=== PATIENT | female | born 1985 | race Caucasian/White ===

== ENCOUNTER 2023-05-05 07:33 | Emergency (ER) | payer BC, SELFPAY ==
[2023-05-05 07:57] VITALS: BP 133/82
[2023-05-05 08:22] LABS: COVID-19 Antigen Negative (Negative)
--- NOTE | 2023-05-05 09:20 | ED.GENMED ---
History of Present Illness
General
Chief Complaint: Cold/Flu/URI Symptoms
Source: patient
Exam Limitations: none
Time Seen by Provider: 05/05/23 09:03
Nursing documentation reviewed up to this point in time: agreed with
Travel History
Have you had any contact with someone who has COVID-19?: No
Do you have any symptoms of coronavirus? Fever > 100 degrees, chills, cough, shortness of breath, sore throat, loss of taste or smell, muscle aches, or headache?: No
History of Present Illness
History of Present Illness:
Patient is a 38-year-old female who presents to the emergency department complaining of shortness of breath, cough with dilated veins in her lower legs. Patient is approximately 24 weeks and is due 09/12/2023. Patient is 2 para 1 �
0 � 0 � 1. Patient is noted that her vessels in her calves seem to be more dilated than normal. She also has a vessel in her medial left thigh that she says is more dilated. Patient denies fever or chills. Patient denies nasal congestion or sore
throat. Patient denies chest pain. Patient denies any abdominal pain. Patient denies any GI or symptoms.
Past History
Past History
ED Past Medical History: Hypothyroidism
ED Past Surgical History:
PSI?: No
Social History
Tobacco: Non-smoker
Personal:
Living: with family
Review of Systems
Review of Systems
All Other Systems: ROS reviewed and negative except as documented in HPI and ROS
Constitutional: Reports no symptoms
EENT: Reports no symptoms
Respiratory: Reports cough and trouble breathing
Cardiac: Reports no symptoms
ABD/GI: Reports no symptoms
: Reports no symptoms
Musculoskeletal: Reports other (Enlarged varicosities); Denies edema
Skin: Reports no symptoms
Neurological: Reports no symptoms
Hematologic/Lymphatic: Reports no symptoms
Phy Exam
Physical Exam
Physical Exam:
Physical Exam
General: No apparent distress, alert and appropriate, well nourished, well hydrated
HENT: Normocephalic, supple with no lymphadenopathy, no thyromegaly
Eyes: Clear sclera, conjuctiva without injection
Heart: Regular rhythm and rate. No S3, S4. No murmur.
Lungs: No respiratory distress, no stridor, lung sounds with end expiratory wheeze but otherwise clear and equal bilaterally
Abdomen: Soft, nontender, fundus appropriate for dates, no CVA tenderness, BS good
Neuro: Alert and oriented x 3, CN II - XII intact, no motor focality, no cerebellar dysfunction
Skin: no rash
Psychiatric: well kept. interactive and cooperative
Extremities: No edema, cyanosis, tenderness, Good and equal peripheral pulses. Superficial varicosities in the left calf but a deeper 1 medially in the left thigh inferiorly
Course
Orders/Labs/Results
Orders:
Orders
05/05/23 07:59
ECG [Electrocardiogram (*1)] Urgent
Reason for Study: Chest Pain
EKG- Treatment ONCE
05/05/23 08:01
COVID-19 Antigen Urgent
Source: Nasal Swab
Influenza A+B Rapid Molecular Urgent
TRACEE Source: Nasal Swab
Specimen Description:
05/05/23 09:17
Albuterol Nebs [Ventolin Nebules] 2.5 mg INH R NOW STA
Prednisone [Deltasone] 50 mg PO NOW STA
US Periph Venous LOWER Ext Krishna Urgent
Comment:
Reason For Exam: dilated veins preg sob
Vital Signs
Initial and Last Documented VS:
Initial Vital Signs
Temp Pulse Resp BP Pulse Ox
98.2 F 92 18 133/82 97
05/05/23 07:57 05/05/23 07:57 05/05/23 07:57 05/05/23 07:57 05/05/23 07:57
Last Documented Vital Signs
Temp Pulse Resp BP Pulse Ox
98.2 F 92 18 133/82 97
05/05/23 07:57 05/05/23 07:57 05/05/23 07:57 05/05/23 07:57 05/05/23 07:57
*Radiology
Radiology exam reviewed: radiology read reviewed (neg dvt)
*Pulse Oximetry
Patient hypoxic: no
*EKG
Interpreted by ED Provider?: NA
*Leasing Agent Interpretation
Rate: Leasing Agent- N/A
*Critical Care Note
Total Time (30-74mins, 75-104mins- exclusive of procedures): Not Applicable
Update Note
Update Note:
COVID and influenza are negative. Anticipate discharging patient on steroids and albuterol inhaler for acute bronchitis. I do not believe the patient needs antibiotics. Because the patient is traveling tomorrow by plane to [place] we will scan
the legs to ensure no DVT. Patient has no history of PE or DVT. Patient has no history of asthma but mother has asthma.
ED Attending Note
-
Portions of this chart may have been created with voice recognition software.� Occasional wrong word or��sound alike� substitutions may have occurred due to the inherent limitations of voice recognition software.
Discharge Plan
Departure
Patient Disposition: Home (Routine Discharge)
Date of Disposition: 05/05/23
Time of Disposition: 12:21
Patient with high blood pressure during this ER visit?: No
Condition: Good
Covid-19: Not Applicable
Discharge Problem:
Acute bronchitis
Instructions: Acute Bronchitis, Adult (DC)
Prescriptions:
New
prednisone 20 mg tablet
20 mg PO BID Qty: 10 0RF
albuterol sulfate [ProAir HFA] 90 mcg/actuation Hfa Aerosol Inhaler
1 puff INHALATION Q4HPRN PRN (Reason: shortness of breath) Qty: 8.5 0RF
No Action
Synthroid
112 mcg PO DAILY
acetaminophen 325 MG tablet
650 mg PO Q4HPRN PRN (Reason: mild pain) 0RF
sennosides-docusate sodium 1 TABLET tablet
1 tab PO DAILYPRN PRN (Reason: constipation) Qty: 30 0RF
ferrous sulfate [FeroSul] 325 MG tablet
325 mg PO BID Qty: 60 0RF
ibuprofen 600 MG tablet
600 mg PO Q6HPRN PRN (Reason: cramps) Qty: 30 0RF
Referrals:
Cody Sterling MD [Family Provider] - As needed
Interventions
Interventions:
*ED COVID-19 Vaccine History Last Done: 05/05/23 07:57
[2023-05-05] MEDS: DELTASONE 50 MG PO (10:46)
[2023-05-05] MEDS: VENTOLIN NEBULES 2.5 MG INH (10:46)
[2023-05-05 12:32] VITALS: BP 100/62
== END 2023-05-05 12:34 | disposition home or self-care (01) ==
LOC: EMR 07:33
PROVIDERS: Emergency Medicine; EMERGENCY PHYSICIAN Emergency Medicine; FAMILY PHYSICIAN Internal Medicine
DX: J20.9 Acute bronchitis, unspecified (principal); E03.9 Hypothyroidism, unspecified
CPT/HCPCS: 99284; 94640; 87502; 87811; 93005; 93970

== ENCOUNTER 2023-08-13 02:31 | Inpatient (IN) | payer BC, SELFPAY ==
[2023-08-13 02:38] VITALS: BMI 30.9
[2023-08-13 02:49] VITALS: BP 141/80
[2023-08-13] MEDS: BICITRA 30 ML PO (03:15)
[2023-08-13] MEDS: ANCEF 10 IV (03:15)
[2023-08-13] MEDS: TYLENOL 1000 MG PO (03:15)
[2023-08-13 03:19] LABS: Hematocrit 35.1 % (37.0-47.0); Hemoglobin 11.5 g/dL (12.0-16.0); Mean Corp Hgb Conc. 32.8 g/dL (33.0-37.0); Mean Corpuscular Hgb 29.1 pg (27.0-31.0); Mean Corpuscular Volume 88.9 fL (81.0-99.0); Mean Platelet Volume 9.2 fL (7.4-10.4); Platelet Count 228 10^3/uL (130-400); Red Blood Cell Count 3.95 10^6/uL (4.20-5.40); Red Cell Dist. Width 14.7 % (11.5-14.5); White Blood Cell Count 10.5 10^3/uL (4.8-10.8)
[2023-08-13] MEDS: PITOCIN 30 UNITS/NSS 500 ML IV (07:49)
[2023-08-13] MEDS: TORADOL 15 MG IV ×2 (13:33→20:20)
[2023-08-13] MEDS: FLUSH (NSS) 1 FLUSH IV (20:20)
[2023-08-14] MEDS: TORADOL 15 MG IV ×2 (01:44→08:18)
[2023-08-14] MEDS: FLUSH (NSS) 3 FLUSH IV (01:47)
[2023-08-14 04:58] LABS: Hematocrit 32.1 % (37.0-47.0); Hemoglobin 10.6 g/dL (12.0-16.0); Mean Corpuscular Hgb 29.9 pg (27.0-31.0); Mean Corpuscular Volume 90.4 fL (81.0-99.0); Mean Platelet Volume 9.2 fL (7.4-10.4); Platelet Count 176 10^3/uL (130-400); Red Blood Cell Count 3.55 10^6/uL (4.20-5.40); Red Cell Dist. Width 15.1 % (11.5-14.5); White Blood Cell Count 12.9 10^3/uL (4.8-10.8)
[2023-08-14] MEDS: SYNTHROID 112 MCG PO (05:51)
[2023-08-14] MEDS: PRENATAL PLUS 1 TABLET PO (08:18)
[2023-08-14] MEDS: FLUSH (NSS) 1 FLUSH IV (08:19)
--- NOTE | 2023-08-14 09:57 | W.PN.ANS.POP ---
Anesthesia Post Operative
- Anesthesia Post Op Note
Vital Signs Stable-See Nursing Note: Yes
Airway Patent: Yes
Adequate Pain Control: Yes
Change in Mental Status: No
Current Postoperative Nausea & Vomiting: No
Anesthesia Complications: No
General Anesthetic Recall: No
Unplanned Admission: No
Post Op Hydration Adequate: Yes
[2023-08-14 14:27] LABS: Syphilis/T. pallidum Ab Reflex Negative (Negative)
[2023-08-14] MEDS: MOTRIN 600 MG PO ×2 (14:34→20:47)
[2023-08-14] MEDS: PERCOCET 5/325 1 TABLET PO (14:34)
[2023-08-14] MEDS: SENOKOT-S 1 TABLET PO (14:34)
[2023-08-14] MEDS: TYLENOL 650 MG PO (20:47)
[2023-08-15] MEDS: MOTRIN 600 MG PO ×3 (02:50→14:51)
[2023-08-15] MEDS: TYLENOL 650 MG PO ×3 (02:50→14:51)
[2023-08-15] MEDS: SYNTHROID 112 MCG PO (06:05)
[2023-08-15] MEDS: PRENATAL PLUS 1 TABLET PO (08:54)
[2023-08-15] MEDS: SENOKOT-S 1 TABLET PO (08:54)
--- NOTE | 2023-08-15 16:06 | W.DS.TRANS ---
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
-
Discharge Instructions:
Discharge Diagnosis/Procedures section
Instructions:
Stand-Alone Forms: LDRP Delivery
Changes to Home Medications: No
Discharge Medications:
DC Medications w/original date entered in [facility]
Synthroid 112 mcg PO DAILY Thyroid 09/17/19
prenat.vits,ondina,npo-kfel-dvjrm 1 tab PO DAILY Supplement 08/13/23
acetaminophen 325 mg tablet 650 mg (2 x 325 mg) PO Q4HPRN PRN mild pain #0 tabs 08/15/23
ibuprofen 600 mg tablet 600 mg PO Q6HPRN PRN cramps #40 tabs 08/15/23
sennosides 8.6 mg-docusate sodium 50 mg tablet (Stool Softener-Stimulant Laxative) 1 tab PO DAILYPRN PRN constipation #0 tabs 08/15/23
simethicone 80 mg chewable tablet 80 mg PO TIDPRN PRN flatulence #0 tabs 08/15/23
Home Medication Changes
Pending Results: No
Total time spent discharging patient (in min): 20
== END 2023-08-15 15:46 | disposition home or self-care (01) | DRG 787 ==
LOC: LDRP 02:31
PROVIDERS: Obstetrics & Gynecology; ADMITTING PHYSICIAN Obstetrics & Gynecology
PROC: 10D00Z1 Extraction of Products of Conception, Low, Open Approach (ICD-10-PCS; 2023-08-13)
DX: O34.211 Maternal care for low transverse scar from previous cesarean delivery (principal); O99.354 Diseases of the nervous system complicating childbirth; O99.284 Endocrine, nutritional and metabolic diseases complicating childbirth; E03.9 Hypothyroidism, unspecified; Z3A.39 39 weeks gestation of pregnancy; Z37.0 Single live birth; Z88.8 Allergy status to other drugs, medicaments and biological substances; O99.824 Streptococcus B carrier state complicating childbirth; G43.909 Migraine, unspecified, not intractable, without status migrainosus; N97.9 Female infertility, unspecified; Z83.3 Family history of diabetes mellitus; Z80.3 Family history of malignant neoplasm of breast; N83.8 Other noninflammatory disorders of ovary, fallopian tube and broad ligament; O34.83 Maternal care for other abnormalities of pelvic organs, third trimester
CPT/HCPCS: 36415; 85027; 86780; 86850; 86900; 86901